=== PATIENT | female | born 1995 | race Two or more races ===

== ENCOUNTER 2018-05-23 20:21 | Emergency (ER) | payer OTHER ==
[2018-05-23] MEDS ORDERED: Ibuprofen TAB* 600 MG PO ONE (21:21)
--- NOTE | 2018-05-23 21:23 | ED ---
Back Pain - HPI Summary HPI Summary: This patient is a 23 year old F presenting to [facility] with a chief complaint of waxing and waning left upper back pain since 05/21/18 AM. Sx aggravated with supine position, and intermittent aggravation from deep breaths. She denies injury. She denies Rx control. - History of Current Complaint Chief Complaint: EDBackInjuryPain Stated Complaint: BACK PAIN Time Seen by Provider: 05/23/18 21:00 Hx Obtained From: Patient Onset/Duration: Sudden Onset, Lasting Days, Still Present Onset/Duration: Started Days Ago, Atraumatic, Still Present Timing: Constant Back Pain Location: Is Discrete @ - left upper back Severity Initially: Mild Severity Currently: Mild Pain Intensity: 0 Pain Scale Used: 0-10 Numeric Aggravating Symptom(s): Other - deep breath, supine position Alleviating Symptom(s): Other Associated Signs And Symptoms: Positive: Negative - Allergies/Home Medications Allergies/Adverse Reactions: Allergies Allergy/AdvReac Type Severity Reaction Status Date / Time No Known Allergies Allergy Verified 05/23/18 20:28 PMH/Surg Hx/FS Hx/Imm Hx Endocrine/Hematology History: Denies: Hx Sickle Cell Disease Cardiovascular History: Denies: Hx Pacemaker/ICD History: Denies: Hx Dialysis Sensory History: Reports: Hx Contacts or Glasses Denies: Hx Legally Blind, Hx Deafness Opthamlomology History: Reports: Hx Contacts or Glasses Denies: Hx Legally Blind EENT History: Denies: Hx Deafness Neurological History: Denies: Hx Dementia Psychiatric History: Denies: Hx Schizophrenia Infectious Disease History: No Infectious Disease History: Denies: Traveled Outside the [place] in Last 30 Days - Family History Known Family History: Negative: Blood Disorder - Social History Occupation: Student Lives: Dormitory/Roommates Alcohol Use: None Substance Use Type: Reports: None Smoking Status (MU): Never Smoked Tobacco Review of Systems Negative: Fever Positive: no symptoms reported Positive: Myalgia - upper left back All Other Systems Reviewed And Are Negative: Yes Physical Exam - Summary Physical Exam Summary: VITAL SIGNS: Reviewed. GENERAL: Patient is a well-developed and nourished female who is lying comfortable in the stretcher. Patient is not in any acute respiratory distress. HEAD AND FACE: No signs of trauma. No ecchymosis, hematomas or skull depressions. No sinus tenderness. EYES: PERRLA, EOMI x 2, No injected conjunctiva, no nystagmus. EARS: Hearing grossly intact. Ear canals and tympanic membranes are within normal limits. MOUTH: Oropharynx within normal limits. NECK: Supple, trachea is midline, no adenopathy, no JVD, no carotid bruit, no c- spine tenderness, neck with full ROM. CHEST: Symmetric, no tenderness at palpation. LUNGS: Clear to auscultation bilaterally. No wheezing or crackles. CVS: Regular rate and rhythm, S1 and S2 present, no murmurs or gallops appreciated. ABDOMEN: Soft, non-tender. No signs of distention. No rebound no guarding, and no masses palpated. Bowel sounds are normal. EXTREMITIES: FROM in all major joints, no edema, no cyanosis or clubbing. NEURO: Alert and oriented x 3. No acute neurological deficits. Speech is normal and follows commands. SKIN: Dry and warm BACK: mild tenderness over left mid-back/left-lower ribcage. Left SLR (+) at 60 degrees. Triage Information Reviewed: Yes Vital Signs On Initial Exam: Initial Vitals Temp Pulse Resp BP Pulse Ox 98.2 F 97 16 118/77 96 05/23/18 20:25 05/23/18 20:25 05/23/18 20:25 05/23/18 20:25 05/23/18 20:25 Vital Signs Reviewed: Yes Diagnostics - Vital Signs Vital Signs Temp Pulse Resp BP Pulse Ox 05/23/18 20:25 98.2 F 97 16 118/77 96 - Laboratory Lab Statement: Any lab studies that have been ordered have been reviewed, and results considered in the medical decision making process. Back Pain Course/Dx - Course Course Of Treatment: A 23-year-old F presents to the ED with a CC of upper back pain for 2 days. (+) upper back pain, worse sx with supine position and deep breaths. Sx started s/p wearing high heels for a night. In the ED course, pt was given motrin. - Diagnoses Provider Diagnoses: Back pain Discharge - Sign-Out/Discharge Documenting (check all that apply): Patient Departure - discharge - Discharge Plan Condition: Stable Disposition: HOME Prescriptions: Ibuprofen TAB* [Motrin TAB* 600 MG] 600 mg PO Q6H PRN #30 tab PRN Reason: Pain - Back Patient Education Materials: Back Pain (ED) Referrals: [facility] [Provider Group] Additional Instructions: Please return to the emergency department for any new or worsening symptoms. Follow up with your primary care provider or [facility] if you do not have one (info provided) in 1-2 days. - Attestation Statements Document Initiated by Scribe: Yes Documenting Scribe: Kris Yan Provider For Whom Scribe is Documenting (Include Credential): Dr. Lauren Cortez MD Scribe Attestation: IKris, scribed for Dr. Lauren Cortez MD on 05/23/18 at [id number].
[2018-05-23 22:38] VITALS: BP 110/70
== END 2018-05-23 22:36 | disposition home or self-care (01) ==
LOC: ED 20:21
DX: M54.9 Dorsalgia, unspecified (principal)
CPT/HCPCS: 36415; 85379; 99281; A9270-GY